=== PATIENT | female | born 1965 | race African-American/Black ===

== ENCOUNTER 2017-12-25 14:15 | Emergency (ER) | payer MEDICAID ==
[~2017-12-25] VITALS: Ht 172.7 cm; Wt 77.0 kg
[~2017-12-25 14:15] MED LIST: ALBU05 IH; METO-293 PO
[2017-12-25] MEDS ORDERED: IBUPROFEN 800MG TABLET PO ONE (15:00)
[2017-12-25] MEDS ORDERED: PREDNISONE 20MG TABLET PO ONE (17:30)
[2017-12-25] MEDS ORDERED: CYCLOBENZAPRINE 10MG TABLET PO ONE (17:30)
[2017-12-25 18:23] VITALS: BP 127/78
== END 2017-12-25 18:47 | disposition home or self-care (01) ==
LOC: ER 14:56
DX: M54.5 Low back pain (principal); G89.29 Other chronic pain; J45.909 Unspecified asthma, uncomplicated; F31.9 Bipolar disorder, unspecified; K21.9 Gastro-esophageal reflux disease without esophagitis; Z88.2 Allergy status to sulfonamides
CPT/HCPCS: 99284; J7512

== ENCOUNTER 2018-02-11 14:26 | Emergency (ER) | payer MEDICAID ==
[~2018-02-11] VITALS: Ht 172.7 cm; Wt 73.0 kg
[2018-02-11 17:17] LABS: BASOPHILS % 0.4 % (0.0-2.0); HEMATOCRIT. 35.9 % (36.0-48.0); HEMOGLOBIN. 11.8 g/dL (12.0-16.0); LYMPHOCYTES % 24.5 % (20.0-50.0); MEAN CORPUSCULAR HEMOGLOBIN 26.9 pg (28.0-32.0); MEAN CORPUSCULAR VOLUME 81.7 fL (81.0-99.0); MONOCYTES % 8.1 % (2.0-8.0); PLATELET 453 x1000/uL (130-400); RED BLOOD CELL COUNT 4.39 mill/uL (4.2-5.4); RED CELL DISTRIBUTION WIDTH 14.3 % (11.6-14.6)
[2018-02-11 17:19] LABS: CHLORIDE 104 mEq/L (98-107); PARTIAL THROMBOPLASTIN TIME 26.4 sec (23.4-31.0); PROTHROMBIN TIME 10.6 sec (9.4-11.6)
[2018-02-11] MEDS ORDERED: HYDROCODONE/ACETAMINOPHEN 5/325MG TABLET PO ONE (19:45)
[2018-02-11 21:05] VITALS: BP 100/67
== END 2018-02-11 21:05 | disposition home or self-care (01) ==
LOC: ER 16:50
DX: R07.89 Other chest pain (principal); F41.9 Anxiety disorder, unspecified; K21.9 Gastro-esophageal reflux disease without esophagitis; F31.9 Bipolar disorder, unspecified; J45.909 Unspecified asthma, uncomplicated; R94.31 Abnormal electrocardiogram [ECG] [EKG]; Z98.41 Cataract extraction status, right eye; Z88.2 Allergy status to sulfonamides; Z88.8 Allergy status to other drugs, medicaments and biological substances
CPT/HCPCS: 36415; 71045; 80053; 81025; 83880; 84484; 85025; 85610; 85730; 93005; 99285

== ENCOUNTER 2018-10-20 11:11 | Emergency (ER) | payer SELFPAY ==
[~2018-10-20] VITALS: Ht 170.2 cm; Wt 82.0 kg
[2018-10-20] MEDS ORDERED: KETOROLAC 60MG/2ML VIAL IM ONE (11:45)
[2018-10-20 15:00] VITALS: BP 105/68
== END 2018-10-20 15:32 | disposition home or self-care (01) ==
LOC: ER 11:11
DX: M54.40 Lumbago with sciatica, unspecified side (principal); F41.9 Anxiety disorder, unspecified; J45.909 Unspecified asthma, uncomplicated; F31.9 Bipolar disorder, unspecified; Z88.2 Allergy status to sulfonamides; Z88.5 Allergy status to narcotic agent; Z88.1 Allergy status to other antibiotic agents; Z88.8 Allergy status to other drugs, medicaments and biological substances; Z79.899 Other long term (current) drug therapy
CPT/HCPCS: 72100; 96372; 99283; J1885